=== PATIENT | female | born 1975 | race Hispanic/Latino ===

== ENCOUNTER → 2018-05-17 | Day surgery (SDC) | payer OTHER ==
[~2018-05-17] MED LIST: ACETAMINOPHEN 1000 MG/100 ML 100 ML IV ONE; BUPIVACAINE HCL 0.5% INJ 30 ML VIAL INJ ONE; CEFAZOLIN SOD 2 GM/D5W 50ML 50 ML IV ONE; DEXAMETHASONE SOD PHOS INJ 4 MG/ML VIAL ONE; EYE LUBRICANT OPTH OINT 3.5GM TUBE OP ONE; FENTANYL CITRATE/PF 100MCG/2 ML INJ ONE; KETOROLAC TROMETHAMINE 30 MG/ML VIAL ONE; LIDOCAINE HCL 2% LOCAL INJ 5 ML SDV VIAL INJ ONE; MEPERIDINE HCL INJ 50 MG/ML INJ ONE; MIDAZOLAM HCL 2 MG/2 ML VIAL ONE; NEOSTIGMINE 1 MG/ML 10ML VIAL ONE; ONDANSETRON HCL INJ 2 MG/ML VIAL ONE; PROPOFOL IV EMULSION 10 MG/ML 20 ML VIAL ONE; SEVOFLURANE INHAL SOLN 250 ML PEN BTL ONE
--- NOTE | 2018-05-17 09:28 | Operative Report ---
DATE OF PROCEDURE: May 17, 2018 [employer] MACHINE OPERATOR: None. PREOPERATIVE DIAGNOSIS: Hallux abductovalgus. POSTOPERATIVE DIAGNOSIS: Hallux abductovalgus. PROCEDURES 1. Carroll bunionectomy, right foot. 2. Use of human allograft to prevent adhesions, to decrease inflammatory response and to promote healing, 2 x 2 cm graft, reference [id number], lot [id number]. COMPLICATIONS: None. CONDITION: Stable. MATERIALS 1. AlloWrap DS wet. 2. A 2.5 x 14-mm headed screw from [employer]. PROCEDURE IN DETAIL: Under mild sedation, the patient was brought to the operating room and placed on the operating table in the supine position. Following IV sedation, anesthesia was obtained with a general anesthetic. At this point, the right foot was scrubbed, prepped and draped in the usual aseptic manner. It was then lowered to the table. The pneumatic thigh tourniquet was inflated to 350 mmHg. The leg was lowered to the table. Carroll bunionectomy, right foot: Attention was directed to the medial aspect of the right foot where a linear incision was made overlying the metatarsophalangeal joint. The incision was deepened via sharp and blunt dissection, taking care to retract or cauterize neurovascular structures as necessary. It was deepened down to the level of the capsule. Once the capsule was visualized, an inverted-L capsulotomy was then performed. The capsule was then reflected off the head of the 1st metatarsal, thereby exposing the lateral exostosis and medial exostosis of the 1st MPJ. At this point, the exostosis was then removed utilizing an oscillating saw. Attention was then directed to the 1st intermetatarsal space where a lateral release was performed through and through in order for the fibular and sesamoid to float into a more anatomical position. Attention was directed to the head of the 1st metatarsal where a 60-degree osteotomy was performed through and through moving the head of the 1st metatarsal medially and laterally in order to close the high intermetatarsal angle. One screw 2.5 x 14 mm was used utilizing standard AO technique. There was noted to be adequate compression clinically and with the use of intraop fluoroscopy. The use of human allograft was then used after the capsule was closed with 3-0 Vicryl in order to prevent adhesions and to promote healing. The area was then closed, the capsule with 3-0 Vicryl and then 4-0 Monocryl suture. A clean dressing was applied consisting of Steri-Strips, 4 x 4's, Kerlix and an Chepe bandage. The tourniquet was deflated, and there was noted to be hyperemic response to all the digits. The patient tolerated the procedure and the anesthesia well without complications and was transported to the recovery room with vital signs stable and vascular status intact to both feet. The patient will be discharged home when she meets criteria. They were given instructions to be nonweightbearing and to ice and elevate the foot while at rest. Follow up with me in the office and to call the office if any questions, concerns or any problems arise. Job#: [id number]
[2018-05-17 10:30] VITALS: BP 109/69
== END | disposition home or self-care (01) ==
LOC: OR 05:53
PROVIDERS: ATTEND Podiatrist Foot & Ankle Surgery
DX: M20.11 Hallux valgus (acquired), right foot (principal); M20.5X1 Other deformities of toe(s) (acquired), right foot; Z88.6 Allergy status to analgesic agent
CPT/HCPCS: 28296; J0131; J0690; J1100; J1885; J2001; J2175; J2250; J2405; J2704; Q4150; 76000; J2710

== ENCOUNTER 2021-08-29 11:33 | Emergency (ER) | payer OTHER ==
[~2021-08-29] VITALS: Ht 154.9 cm; Wt 79.4 kg
[2021-08-29] MEDS ORDERED: HYDROCODONE/APAP 5MG-325MG TAB PO ONE (12:15)
[2021-08-29] MEDS ORDERED: DEXAMETHASONE SOD PHOS 10 MG/1 ML VIAL IM ONE (12:15)
[2021-08-29] MEDS ORDERED: METHOCARBAMOL 750 MG TAB PO ONE (12:30)
[2021-08-29] MEDS ORDERED: METHOCARBAMOL750 MG PO (13:08)
[2021-08-29] MEDS ORDERED: KETOROLAC TROME10 MG PEG (13:08)
[2021-08-29] MEDS ORDERED: PREDNISONE50 MG PO (13:08)
== END 2021-08-29 13:47 | disposition home or self-care (01) ==
LOC: ER 11:48
DX: M54.50 Low back pain, unspecified (principal); M53.86 Other specified dorsopathies, lumbar region
CPT/HCPCS: 72110; 99283; J1100